=== PATIENT | male | born 1990 | race African-American/Black ===

== ENCOUNTER 2016-07-07 09:07 | Emergency (ER) | payer MEDICAID, OTHER ==
[2016-07-07 09:17] VITALS: BP 133/84
--- NOTE | 2016-07-07 09:37 | ERNOTE ---
Medical Problem HPI - Narrative Date of Service: 07/07/16 - General Chief Complaint: General Assessment Time Seen by Provider: 07/07/16 09:21 Source: patient Exam Limitations: no limitations - Immun/Allergies/Home Medications Immunizations: IMMUNIZATION HX Immunizations Up to Date Yes History of Influenza Vaccine No Hx Pneumococcal Vaccination No Allergies/Adverse Reactions: Allergies No Known Allergies Allergy (Verified 10/15/14 19:04) Home Medications: HOME MEDICATIONS Hydrocodone/Acetaminophen [[place] 5-325 Tablet] 1 - 2 tab PO Q6H PRN #10 tab 02/19 [Last Taken Unknown] Naproxen [Naprosyn] 500 mg PO BID #20 tablet 10/15/14 [Last Taken Unknown] Ondansetron [Zofran Odt] 4 mg PO Q6H PRN #15 tab 10/15/14 [Last Taken Unknown] - History of Present History Narrative: Patient comes to ER to get help for Detox. Patient has been using [place] [employer] and want to stop using this drug. Patient is not suicidal, not homicidal, and has no active hallucination. Patient has no other medical complaint at the moment. Timing: constant Severity: mild Modifying Factors - (Improves): Present: other - Nothing Modifying Factors - (Worsens): Present: other - Nothing Review of Systems - Review of Systems Constitutional: Present: no symptoms reported EYE: Present: no symptoms reported ENT: Present: no symptoms reported Respiratory: Present: no symptoms reported Cardiology: Present: no symptoms reported Gastrointestinal/Abdominal: Present: no symptoms reported Genitourinary: Present: no symptoms reported Musculoskeletal: Present: no symptoms reported Skin: Absent: other Neurological: Present: emotional problems, other - Patient is using a psycho active substance and wants to stop its use.. Absent: anxiety, depressed, dizziness/light-headedness, seizure, weakness, numbness, tingling, tremors, pre- existing deficit Hematologic/Lymphatic: Present: no symptoms reported Psych: Present: emotional problems. Absent: anxiety, depressed All Other Systems: All systems neg except as marked - Patient's Past Medical History Patient History - Medical: No pertinent hx Patient History - Cardiac/Respiratory: No pertinent hx Patient History - Cancer: No Hx of Cancer Patient History - Surgical Procedures: No surgical history Patient History - Other: None - Family History Mother Family History - Cancer: Other - Social History Living Situations: home Abuse History: Hx of Substance Use Psych History: No pertinent hx Smoking Status: Current every day smoker Have you smoked in the past 12 months: Yes Alcohol Use: none Drug Use: marijuana, meth - Immunizations Immunizations Up to Date: Yes Hx Pneumococcal Vaccination: No History of Influenza Vaccine: No Physical Exam - Physical Exam General Appearance: Present: wd/wn, alert Ears, Nose, Throat: Present: normal ENT inspection Neck: Present: normal inspection, nontender Respiratory: Present: no respiratory distress, normal breath sounds, no accessory muscle use, chest nontender, lungs clear Cardiovascular/Chest: Present: regular rate, rhythm, no murmur, normal peripheral pulses Gastrointestinal/Abdominal: Present: normal bowel sounds, nontender, nondistended, soft, no organomegaly Back Exam: Present: normal inspection, normal range of motion, no CVA tenderness , no vertebral tenderness Extremity Exam: Present: normal inspection, non-tender, normal range of motion, no edema Neurological Exam: Present: alert, oriented, normal mood/affect, no motor/ sensory deficits Skin Exam: Present: normal color, warm/dry Lymphatic Exam: Present: no adenopathy ED Progress - Date and Time Seen: Date and Time: 07/07/16 09:31 Patient has been given information on programs in the community to help for his condition. Patient at the moment has no emergent condition and no limb threatening condition identified. Patient is not suicidal, not homicidal, and has not active hallucinations. Patient is not under custody at this point. - Vital Signs Patient's Vital Signs:: I have reviewed the patient's vital signs. Vital Signs: Vital Signs 07/07/16 09:13 Temperature 36.7 C Pulse Rate 83 Respiratory 16 Rate Blood Pressure 133/84 O2 Sat by Pulse 95 Oximetry - Progress/Reassessment Chief Complaint: General Assessment Progress:: Unchanged - Transfer of Care Expected Disposition: Discharge Departure - Departure Clinical Impression: Anxiety reaction Condition: Stable Instructions: Smoking Hazards, Finding Treatment for Addiction, Stimulant Use Disorder-Amphetamines, Stimulant Use Disorder-Methamphetamines Additional Instructions: Please call [facility] [phone] for your condition
== END 2016-07-07 09:46 | disposition home or self-care (01) ==
LOC: ER 09:07
DX: F41.1 Generalized anxiety disorder (principal)

== ENCOUNTER 2016-09-02 17:16 | Emergency (ER) | payer OTHER ==
[2016-09-02 17:51] VITALS: BP 142/71
--- OUTSIDE RECORDS SUMMARY | 2016-09-02 18:10 | XMS REPORT | Continuity of Care Document ---
:1990 Author Organization [facility] [place] [address] Care Team Providers Name Role Phone Unavailable Primary Care Provider Unavailable Source Comments This disclosure is being made pursuant to the [employer] program and maynot contain all information available regarding this patient.[facility] Active Allergies and Adverse Reactions Not on File Current Medications Be aware that medications may not be up to date as of this document. Alwaysverify current medications with the patient. Not on file Active Problems Not on file Social History Tobacco Use Types Packs/Day Years Used Date Never Assessed Plan of Care Health Maintenance Due Date Last Done Comments Retired-Pertussis Vaccine Adult 2007 Retired-Tetanus Vaccine Adult 2007 Retired-INFLUENZA VACCINE 01/06/2015 Results from Last 3 Months Not on file
--- NOTE | 2016-09-02 18:31 | ERNOTE ---
ENT HPI Date of Service: 09/02/16 Time Seen by Provider: 09/02/16 18:02 Source: patient Exam Limitations: no limitations - Immun/Allergies/Home Medications Immunizations: IMMUNIZATION HX Immunizations Up to Date Yes History of Influenza Vaccine No Hx Pneumococcal Vaccination No Allergies/Adverse Reactions: Allergies Allergy/AdvReac Type Severity Reaction Status Date / Time No Known Allergies Allergy Verified 09/02/16 17:51 Home Medications: HOME MEDICATIONS Naproxen [Naprosyn] 500 mg PO BID PRN #60 tab 09/02/16 [Last Taken Unknown] Sulfamethoxazole/Trimethoprim [Bactrim Ds] 1 tab PO BID #28 tab 09/02/16 [Last Taken Unknown] - History of Present Illness Narrative: Pt. comes in with c/o L facial swelling and pain for a day. Pt. denies any dental pain, ear pain, rhinorrhea, fever, SOB, CP, headache, NVD, alleviating factors, but states that palpation exacerbates the pain. Pt. denies any prehospital treatment. Review of Systems - Review of Systems Constitutional: Present: no symptoms reported. Absent: recent illness, fever, chills, weakness, fatigue EYE: Present: no symptoms reported ENT: Present: other - L cheek swelling to ear. Absent: pulling on ears, nose pain, nose congestion, nasal drainage, throat swelling Respiratory: Present: no symptoms reported. Absent: shortness of breath, cough , wheezing Cardiology: Present: no symptoms reported. Absent: chest pain, palpitations, edema, claudication Gastrointestinal/Abdominal: Present: no symptoms reported. Absent: nausea, vomiting, diarrhea Genitourinary: Present: no symptoms reported. Absent: frequency, pain, dysuria , decreased urinary output Musculoskeletal: Present: no symptoms reported. Absent: back pain, joint pain Skin: Present: lumps - L face. Absent: rash Neurological: Present: emotional problems. Absent: headache, dizziness/light- headedness, numbness, tingling All Other Systems: All systems neg except as marked - Patient's Past Medical History Patient History - Medical: No pertinent hx Patient History - Cardiac/Respiratory: No pertinent hx Patient History - Cancer: No Hx of Cancer Patient History - Surgical Procedures: No surgical history Patient History - Other: None - Family History Mother Family History - Cancer: Other - Social History Living Situations: home Abuse History: Hx of Substance Use Psych History: No pertinent hx Smoking Status: Current every day smoker Do you dip or chew tobacco: No Alcohol Use: none Drug Use: marijuana, meth - Immunizations Immunizations Up to Date: Yes Hx Pneumococcal Vaccination: No History of Influenza Vaccine: No Physical Exam - Physical Exam General Appearance: Present: wd/wn, alert, no apparent distress Eye Exam: Normal inspection: bilateral, PERRL: bilateral, EOMI: bilateral Ears, Nose, Throat: Present: normal ENT inspection, normal pharynx Neck: Present: normal inspection, nontender. Absent: lymphadenopathy (R), lymphadenopathy (L) Respiratory: Present: no respiratory distress, normal breath sounds, no accessory muscle use, chest nontender, lungs clear Cardiovascular/Chest: Present: regular rate, rhythm, no murmur, normal peripheral pulses Gastrointestinal/Abdominal: Present: normal bowel sounds, nontender, nondistended, soft, no organomegaly Back Exam: Present: normal inspection Extremity Exam: Present: normal inspection Neurological Exam: Present: alert, oriented, normal mood/affect, no motor/ sensory deficits Skin Exam: Present: warm/dry, other - L face with soft tissue edema and erythema ED Progress - Results and Orders Patient's Lab Results:: I have reviewed the patient's lab results. - Vital Signs Patient's Vital Signs:: I have reviewed the patient's vital signs. Vital Signs: Vital Signs 09/02/16 17:48 Temperature 37.3 C Pulse Rate 98 Respiratory 16 Rate Blood Pressure 142/71 O2 Sat by Pulse 98 Oximetry - Progress/Reassessment Chief Complaint: Facial Injury Progress:: Unchanged Departure Clinical Impression: Cellulitis and abscess of face - Departure Disposition: Home self-care Condition: Good Instructions: Cellulitis, Adult, [id number] Additional Instructions: Please follow up with primary provider in 2-3 days to check for healing. Prescriptions: Naproxen [Naprosyn] 500 mg PO BID PRN #60 tab PRN Reason: Pain Sulfamethoxazole/Trimethoprim [Bactrim Ds] 1 tab PO BID #28 tab
[2016-09-02 18:47] LABS: Hematocrit 42.6 % (42.0-52.0); Hemoglobin 14.4 gm/dL (13.5-18.0); Mean Cell Volume 86.2 fl (78-100); Mean Corpuscular Hemoglobin 29.1 pg (27-31); Mean Corpuscular Hgb Conc 33.8 g/dl (32-36); Mean Platelet Volume 8.3 fl (6.0-9.5); Neutrophil # 3.1 K/mm3 (1.3-6.0); Neutrophil % 40.1 % (42-75.0); Platelet Count 354 K/mm3 (150-450); Red Blood Count 4.94 M/mm3 (4.7-6.0); Red Cell Distribution Width 15.5 % (11.5-14.0); White Blood Count 7.8 K/mm3 (4.0-10.5)
[2016-09-02 19:01] LABS: Albumin * 3.9 gm/dl (3.4-5.0); Bilirubin, Total 0.3 mg/dL (0.0-1.1); Ca. Corrected For Albumin 8.5 mg/dL (8.4-10.2); Calcium * 8.7 mg/dL (7.9-10.9); Carbon Dioxide 24.8 mmol/L (24-32.6); Potassium 3.8 mmol/L (3.4-4.6); Total Protein 7.6 gm/dL (6.2-8.2)
== END 2016-09-02 19:14 | disposition home or self-care (01) ==
LOC: ER 17:16
DX: L03.211 Cellulitis of face (principal); F17.200 Nicotine dependence, unspecified, uncomplicated